=== PATIENT | male | born 1990 | race Caucasian/White ===

== ENCOUNTER 2024-09-26 13:00 | Emergency (ER) | payer BC, SELFPAY ==
[2024-09-26] VITALS (12 sets, daily range): BP systolic 145–186; BP diastolic 104–124; PULSE 65–94; RESP 18; TEMP 36.7; O2SAT 98–100; BMI 24.4
--- NOTE | 2024-09-26 13:08 | ED_ITS ---
<Statement entered by Nara Wilcox MD - 09/28/24 14:46> I was consulted by the RANJANA, and we discussed the complexity of the problems being addressed. I approved the treatment and management plan for this patient's care in the emergency department, thus performing a substantive portion of the medical decision making. Nara Wilcox MD, CORNELL, FACEP Discharge Plan Disposition Patient Disposition: Xfer Short-Term Hosp Referrals Follow up/Referrals: Soheila Alvarado [Primary Care Provider] - See instructions Clinical Impressions Clinical Impression: Carotid artery dissection, Malignant hypertension Stand Alone Forms Stand Alone Forms: Transfer Record - ED Print Language Print Language: Latvian Discharge ED Provider: Nara Wilcox General Adult HPI <MEGAN Chu - Last Filed: 09/26/24 15:45> General Chief complaint: Headache Stated complaint: High Blood Pressure Time Seen by Provider: 09/26/24 13:07 History of Present Illness HPI narrative: Acute abortivePatient presents for evaluation of a headache. Patient has a known history of migraine headaches and is on both disease modifying medication as well as. He has taken both of those without relief. He reports photophobia phonophobia. He has not had any vision changes change in level of consciousness dizziness or focal neurologic signs. He has no nuchal rigidity. He went to an urgent treatment center today and he was noted to be significantly hypertensive. According to the patient and his they gave him a cortisone shot and prescribed him lisinopril hydrochlorothiazide. However patient is no better and presented to the ER for evaluation. On arrival he again reports diffuse headache and it is worse than he has ever had before. It has not responded to any of his outpatient regimens. He denies chest pain shortness of breath fever chills hemoptysis hematochezia melena he has some nausea but no vomiting or diarrhea. Related Data Allergies Allergy/AdvReac Type Severity Reaction Status Date / Time cefaclor (From [facility]) Allergy Hives Verified 09/26/24 13:39 PFSH <MEGAN Chu - Last Filed: 09/26/24 15:45> PFS Disclaimer: The information contained in this section may have been updated after the patient was seen, as this information can be updated by other users. Social History (Updated 09/26/24 @ 15:45 by RANDALL Chu Smoking Status: Never smoker alcohol intake: never current occupational status: employed Travel in the last 8 weeks: None <MEGAN Chu - Last Filed: 09/26/24 15:45> ROS Obtained: Yes Systems reviewed as appropriate & no additional complaints except as documented Physical Exam <MEGAN Chu - Last Filed: 09/26/24 15:45> General General appearance: alert and in no apparent distress Head Head exam: atraumatic and normal inspection Neck Neck exam: Present other (No carotid bruits) Respiratory Respiratory exam: Present normal lung sounds bilaterally Cardiovascular Cardiovascular exam: Present regular rate Neurological Exam Neurological exam: Present alert and oriented X3 Medical Decision Making <MEGAN Chu - Last Filed: 09/26/24 15:45> Medical Records Medical records reviewed: Yes I reviewed the patient's medical records. Screening: Per USPSTF and CDC recommendations, given the prevalence of disease in our region, it is our hospital?s policy to screen for HIV and viral Hepatitis for all patients aged 18 and over and those with ongoing risk factors. [place] Inquiry Pt receiving controlled substance: No Vital Signs: 09/26/24 13:01 09/26/24 13:30 09/26/24 14:00 Temperature 98.0 F Temperature Source Oral Pulse Rate 78 93 H Pulse Rate [Right] 80 Respiratory Rate 18 Blood Pressure 186/124 H 172/123 H Blood Pressure [Left Arm] 186/123 H Blood Pressure Mean 135 136 Blood Pressure Mean [Left Arm] 144 Blood Pressure Source Blood Pressure Source [Left Arm] Automatic Cuff 02 Sat by Pulse Oximetry 98 100 99 Oxygen Delivery Method Room Air Room Air Room Air 09/26/24 14:30 09/26/24 15:00 09/26/24 15:30 Temperature Temperature Source Pulse Rate 65 79 89 Pulse Rate [Right] Respiratory Rate Blood Pressure 162/122 H 168/124 H 158/119 H Blood Pressure [Left Arm] Blood Pressure Mean 130 138 130 Blood Pressure Mean [Left Arm] Blood Pressure Source Blood Pressure Source [Left Arm] 02 Sat by Pulse Oximetry 100 100 100 Oxygen Delivery Method Room Air Room Air Room Air 09/26/24 16:00 09/26/24 16:09 09/26/24 16:10 Temperature Temperature Source Pulse Rate 89 82 88 Pulse Rate [Right] Respiratory Rate Blood Pressure 148/122 H 155/115 H 165/108 H Blood Pressure [Left Arm] Blood Pressure Mean 128 126 119 Blood Pressure Mean [Left Arm] Blood Pressure Source Blood Pressure Source [Left Arm] 02 Sat by Pulse Oximetry 99 99 100 Oxygen Delivery Method 09/26/24 16:18 09/26/24 16:20 09/26/24 16:40 Temperature 98.0 F Temperature Source Oral Pulse Rate 94 H 88 81 Pulse Rate [Right] Respiratory Rate 18 Blood Pressure 149/112 H 160/120 H 145/104 H Blood Pressure [Left Arm] Blood Pressure Mean 121 131 Blood Pressure Mean [Left Arm] Blood Pressure Source Automatic Cuff Blood Pressure Source [Left Arm] 02 Sat by Pulse Oximetry 100 100 Oxygen Delivery Method Room Air Lab Data Lab results reviewed: Yes I reviewed the patient's lab results. Lab Results 09/26/24 13:13: WBC 7.1, RBC 5.71, Hgb 16.9, Hct 48.2, MCV 84.4, MCH 29.5, MCHC 35.0, RDW 13.3, Plt Count 329, MPV 7.0 L, Neut % (Auto) 56.0, Lymph % (Auto) 31.0, Centre % (Auto) 5.9, Eos % (Auto) 5.7, Baso % (Auto) 1.4, Neut # (Auto) 4.0, Lymph # (Auto) 2.2, Centre # (Auto) 0.4, Eos # (Auto) 0.4, Baso # (Auto) 0.1, ESR 2, Sodium 140, Potassium 3.7, Chloride 97 L, Carbon Dioxide 33 H, Anion Gap 13.7, BUN 8 L, Creatinine 1.30 H, Estimated Creat Clear 90, Estimated GFR 63, Est GFR ( Amer) 76, Glucose 102 H, Calcium 10.8 H, Magnesium 2.2, Total Bilirubin 0.7, AST 31, ALT 28, Alkaline Phosphatase 64, Troponin I < 0.01 09/26/24 13:13: Troponin I Cancelled, C-Reactive Protein Cancelled, NT-Pro-B Natriuret Pep 49.5, Total Protein 8.7 H, Albumin 5.0, Globulin 3.7 H, Albumin/Globulin Ratio 1.4, TSH 1.53, Free T4 Index 3.1 L, Thyroxine (T4) 10.4, T3 Uptake 30 11/22/24 13:13 09/26/24 13:13 Orders (Tests/Meds): ED MEDICATIONS Discontinued Medications Generic Name Dose Route Start Last Admin Trade Name Humera PRN Reason Stop Dose Admin Acetaminophen 1,000 mg 09/26/24 13:29 09/26/24 13:50 Acetaminophen 1,000mg/100ml Vial IV 09/26/24 13:30 1,000 mg ONCE ONE Administration Aspirin 81 mg 09/26/24 15:41 09/26/24 15:45 Aspirin 81mg Chewable Tablet PO 09/26/24 15:42 81 mg ONCE ONE Administration Dexamethasone Sodium Phosphate 10 mg 09/26/24 13:29 09/26/24 13:50 Dexamethasone 4mg/Ml 5ml Mdv IV 09/26/24 13:30 10 mg ONCE ONE Administration Diphenhydramine HCl 50 mg 09/26/24 13:29 09/26/24 13:50 Diphenhydramine 50mg/Ml Vial IV 09/26/24 13:30 50 mg ONCE ONE Administration Fentanyl Citrate 80 mcg 09/26/24 16:23 09/26/24 16:25 Fentanyl 100mcg/2ml Vial IV 09/26/24 16:24 80 mcg ONCE ONE Administration Nicardipine HCl 25 mg/ Sodium 250 mls @ 50 mls/hr 09/26/24 15:41 09/26/24 16:36 Chloride IV 10/26/24 15:40 7.5 mg/hr .Q5H LOYDA 75 mls/hr Infusion Protocol 5 MG/HR Iopamidol 80 ml 09/26/24 14:27 09/26/24 14:28 Iopamidol-370 (76%);100ml Bottle IV 09/26/24 14:28 80 ml ONCE ONE Administration Ketorolac Tromethamine 15 mg 09/26/24 13:29 09/26/24 13:50 Ketorolac 30mg/Ml Vial IV 09/26/24 13:30 15 mg ONCE ONE Administration Methocarbamol 500 mg 09/26/24 13:29 09/26/24 13:49 Methocarbamol 500mg Tablet PO 09/26/24 13:30 500 mg ONCE ONE Administration Prochlorperazine Edisylate 10 mg 09/26/24 13:29 09/26/24 13:49 Prochlorperazine 10mg/2ml Vial IV 09/26/24 13:30 10 mg ONCE ONE Administration Sodium Chloride 10 ml 09/26/24 14:27 09/26/24 14:28 Sodium Chloride 0.9% 10ml Syr (Rad Only) IV 09/26/24 14:28 10 ml ONCE ONE Administration ORDERS Category Date Time Status CT angio head Stat Cat Scan 09/26/24 13:[address] angio neck Stat Cat Scan 09/26/24 13:[address] head/brain wo con Stat Cat Scan 09/26/24 13:32 Completed BNP [NT Pro Brain Natriuretic Pep.] Stat Lab 09/26/24 13:13 Completed CBC w/Auto Diff [Complete Blood Count Auto Diff] Stat Lab 09/26/24 13:13 Completed CMP [Comprehensive Metabolic Panel] Stat Lab 09/26/24 13:13 Completed ESR [Erythrocyte Sedimentation Rate] Stat Lab 09/26/24 13:13 Completed Magnesium Stat Lab 09/26/24 13:13 Completed Thyroid Panel Stat Lab 09/26/24 13:13 Completed Trop I [Troponin I] Stat Lab 09/26/24 13:13 Completed Medical Decision Narrative: In summary patient is a 4-year-old male who presents to the emergency department for evaluation of headache and high blood pressure. Patient is shortly has malignant hypertension with a blood pressure of 186/123 but has an O2 sat of 98% on room air pulse of 80 respiratory rate of 18 pulse of 80 upon arrival, afebrile. Zickel exam is remarkable for no nuchal rigidity, photophobia and phonophobia at the time my exam but pupils equal round reactive to light Mega Coma Score is 15 patient is awake alert and oriented to person place and circumstance. Breath sounds are clear and equal bilaterally to the bases. Heart sounds are normal. There is no carotid bruits heard.. Differential diagnosis includes intractable migraine versus intracranial lesion versus cardiovascular abnormality etc. Initial workup will be conducted with hematologic labs CTA of the head and neck CT of the head without contrast. Initial interventions include Tylenol Decadron Benadryl Compazine Robaxin. Initial workup reviewed by me shows his hematologic labs are remarkable for a creatinine of 1.3 and BUN of 8 and GFR of 63 calcium 10.8 and undetected troponin at 0.01 with the remainder of his hematologic labs being nonactionable. My informal interpretation of CT scan of his head does not show any acute processes on the noncontrast exam however there is questionable stenosis of the right internal carotid prior to radiology read. Radiology confirms that this is either carotid dissection or fibromuscular dysplasia. I personally spoke with the radiologist to receive those results. Upon repeat evaluation patient remains hypertensive but his headache is better.. Given this we are going to allow permissive hypertension due to this being the likelihood of a perfusing pressure for the time being until we speak with vascular surgery. I have contacted the [facility] to initiate that consult. Have reached and discussed with the [facility], Dr. Marie of vascular surgery about patient management and patient is been accepted pending a bed assignment at 1545 <Jono Bassett MD - Last Filed: 09/26/24 21:58> Vital Signs: 09/26/24 13:01 09/26/24 13:30 09/26/24 14:00 Temperature 98.0 F Temperature Source Oral Pulse Rate 78 93 H Pulse Rate [Right] 80 Respiratory Rate 18 Blood Pressure 186/124 H 172/123 H Blood Pressure [Left Arm] 186/123 H Blood Pressure Mean 135 136 Blood Pressure Mean [Left Arm] 144 Blood Pressure Source Blood Pressure Source [Left Arm] Automatic Cuff 02 Sat by Pulse Oximetry 98 100 99 Oxygen Delivery Method Room Air Room Air Room Air 09/26/24 14:30 09/26/24 15:00 09/26/24 15:30 Temperature Temperature Source Pulse Rate 65 79 89 Pulse Rate [Right] Respiratory Rate Blood Pressure 162/122 H 168/124 H 158/119 H Blood Pressure [Left Arm] Blood Pressure Mean 130 138 130 Blood Pressure Mean [Left Arm] Blood Pressure Source Blood Pressure Source [Left Arm] 02 Sat by Pulse Oximetry 100 100 100 Oxygen Delivery Method Room Air Room Air Room Air 09/26/24 16:00 09/26/24 16:09 09/26/24 16:10 Temperature Temperature Source Pulse Rate 89 82 88 Pulse Rate [Right] Respiratory Rate Blood Pressure 148/122 H 155/115 H 165/108 H Blood Pressure [Left Arm] Blood Pressure Mean 128 126 119 Blood Pressure Mean [Left Arm] Blood Pressure Source Blood Pressure Source [Left Arm] 02 Sat by Pulse Oximetry 99 99 100 Oxygen Delivery Method 09/26/24 16:18 09/26/24 16:20 09/26/24 16:40 Temperature 98.0 F Temperature Source Oral Pulse Rate 94 H 88 81 Pulse Rate [Right] Respiratory Rate 18 Blood Pressure 149/112 H 160/120 H 145/104 H Blood Pressure [Left Arm] Blood Pressure Mean 121 131 Blood Pressure Mean [Left Arm] Blood Pressure Source Automatic Cuff Blood Pressure Source [Left Arm] 02 Sat by Pulse Oximetry 100 100 Oxygen Delivery Method Room Air Lab Data Lab Results 09/26/24 13:13: WBC 7.1, RBC 5.71, Hgb 16.9, Hct 48.2, MCV 84.4, MCH 29.5, MCHC 35.0, RDW 13.3, Plt Count 329, MPV 7.0 L, Neut % (Auto) 56.0, Lymph % (Auto) 31.0, Centre % (Auto) 5.9, Eos % (Auto) 5.7, Baso % (Auto) 1.4, Neut # (Auto) 4.0, Lymph # (Auto) 2.2, Centre # (Auto) 0.4, Eos # (Auto) 0.4, Baso # (Auto) 0.1, ESR 2, Sodium 140, Potassium 3.7, Chloride 97 L, Carbon Dioxide 33 H, Anion Gap 13.7, BUN 8 L, Creatinine 1.30 H, Estimated Creat Clear 90, Estimated GFR 63, Est GFR ( Amer) 76, Glucose 102 H, Calcium 10.8 H, Magnesium 2.2, Total Bilirubin 0.7, AST 31, ALT 28, Alkaline Phosphatase 64, Troponin I < 0.01 09/26/24 13:13: Troponin I Cancelled, C-Reactive Protein Cancelled, NT-Pro-B Natriuret Pep 49.5, Total Protein 8.7 H, Albumin 5.0, Globulin 3.7 H, Albumin/Globulin Ratio 1.4, TSH 1.53, Free T4 Index 3.1 L, Thyroxine (T4) 10.4, T3 Uptake 30 Orders (Tests/Meds): ED MEDICATIONS Discontinued Medications Generic Name Dose Route Start Last Admin Trade Name Freq PRN Reason Stop Dose Admin Acetaminophen 1,000 mg 09/26/24 13:29 09/26/24 13:50 Acetaminophen 1,000mg/100ml Vial IV 09/26/24 13:30 1,000 mg ONCE ONE Administration Aspirin 81 mg 09/26/24 15:41 09/26/24 15:45 Aspirin 81mg Chewable Tablet PO 09/26/24 15:42 81 mg ONCE ONE Administration Dexamethasone Sodium Phosphate 10 mg 09/26/24 13:29 09/26/24 13:50 Dexamethasone 4mg/Ml 5ml Mdv IV 09/26/24 13:30 10 mg ONCE ONE Administration Diphenhydramine HCl 50 mg 09/26/24 13:29 09/26/24 13:50 Diphenhydramine 50mg/Ml Vial IV 09/26/24 13:30 50 mg ONCE ONE Administration Fentanyl Citrate 80 mcg 09/26/24 16:23 09/26/24 16:25 Fentanyl 100mcg/2ml Vial IV 09/26/24 16:24 80 mcg ONCE ONE Administration Nicardipine HCl 25 mg/ Sodium 250 mls @ 50 mls/hr 09/26/24 15:41 09/26/24 16:36 Chloride IV 10/26/24 15:40 7.5 mg/hr .Q5H LOYDA 75 mls/hr Infusion Protocol 5 MG/HR Iopamidol 80 ml 09/26/24 14:27 09/26/24 14:28 Iopamidol-370 (76%);100ml Bottle IV 09/26/24 14:28 80 ml ONCE ONE Administration Ketorolac Tromethamine 15 mg 09/26/24 13:29 09/26/24 13:50 Ketorolac 30mg/Ml Vial IV 09/26/24 13:30 15 mg ONCE ONE Administration Methocarbamol 500 mg 09/26/24 13:29 09/26/24 13:49 Methocarbamol 500mg Tablet PO 09/26/24 13:30 500 mg ONCE ONE Administration Prochlorperazine Edisylate 10 mg 09/26/24 13:29 09/26/24 13:49 Prochlorperazine 10mg/2ml Vial IV 09/26/24 13:30 10 mg ONCE ONE Administration Sodium Chloride 10 ml 09/26/24 14:27 09/26/24 14:28 Sodium Chloride 0.9% 10ml Syr (Rad Only) IV 09/26/24 14:28 10 ml ONCE ONE Administration ORDERS Category Date Time Status CT angio head Stat Cat Scan 09/26/24 13:[address] angio neck Stat Cat Scan 09/26/24 13:[address] head/brain wo con Stat Cat Scan 09/26/24 13:32 Completed BNP [NT Pro Brain Natriuretic Pep.] Stat Lab 09/26/24 13:13 Completed CBC w/Auto Diff [Complete Blood Count Auto Diff] Stat Lab 09/26/24 13:13 Completed CMP [Comprehensive Metabolic Panel] Stat Lab 09/26/24 13:13 Completed ESR [Erythrocyte Sedimentation Rate] Stat Lab 09/26/24 13:13 Completed Magnesium Stat Lab 09/26/24 13:13 Completed Thyroid Panel Stat Lab 09/26/24 13:13 Completed Trop I [Troponin I] Stat Lab 09/26/24 13:13 Completed Medical Decision Narrative: In summary patient is a 4-year-old male who presents to the emergency department for evaluation of headache and high blood pressure. Patient is shortly has malignant hypertension with a blood pressure of 186/123 but has an O2 sat of 98% on room air pulse of 80 respiratory rate of 18 pulse of 80 upon arrival, afebrile. Zickel exam is remarkable for no nuchal rigidity, photophobia and phonophobia at the time my exam but pupils equal round reactive to light Mega Coma Score is 15 patient is awake alert and oriented to person place and circumstance. Breath sounds are clear and equal bilaterally to the bases. Heart sounds are normal. There is no carotid bruits heard.. Differential diagnosis includes intractable migraine versus intracranial lesion versus cardiovascular abnormality etc. Initial workup will be conducted with hematologic labs CTA of the head and neck CT of the head without contrast. Initial interventions include Tylenol Decadron Benadryl Compazine Robaxin. Initial workup reviewed by me shows his hematologic labs are remarkable for a creatinine of 1.3 and BUN of 8 and GFR of 63 calcium 10.8 and undetected troponin at 0.01 with the remainder of his hematologic labs being nonactionable. My informal interpretation of CT scan of his head does not show any acute processes on the noncontrast exam however there is questionable stenosis of the right internal carotid prior to radiology read. Radiology confirms that this is either carotid dissection or fibromuscular dysplasia. I personally spoke with the radiologist to receive those results. Upon repeat evaluation patient remains hypertensive but his headache is better.. Given this we are going to allow permissive hypertension due to this being the likelihood of a perfusing pressure for the time being until we speak with vascular surgery. I have contacted the [facility] to initiate that consult. Have reached and discussed with the [facility], Dr. Marie of vascular surgery about patient management and patient is been accepted pending a bed assignment at 1545. I was consulted by the RANJANA, and we discussed the complexity of the problems being addressed. I approved the treatment and management plan for this patient's care in the emergency department, thus performing a substantive portion of the medical decision making. Patient has carotid artery dissection and he is undergoing antihypertensive therapy with Cardene at the direction of vascular surgery from [facility]. They recommend aspirin which was administered in our emergency department immediately after their recommendations. Patient was transferred in stable condition. Jono Bassett MD Critical Care <MEGAN Chu - Last Filed: 09/26/24 15:45> Critical Care Time Critical Care Time: No
--- NOTE | 2024-09-26 13:12 | ECG_ITS ---
APPROVED REPORT Exam: Resting ECG HR:73 bpm ECG Measurements Heart Rate 73 AXES ME 133 P 41 QRSd 102 QRS 48 QT 366 T -11 QTc 393 Conclusion SINUS RHYTHM NONSPECIFIC ST & T-WAVE ABNORMALITY BORDERLINE ECG Electronically signed by : RAFAT CHACKO, 09/26/2024 23:34:42
--- NOTE | 2024-09-26 13:29 | CT_ITS ---
PROCEDURE INFORMATION: Exam: CTA Neck With Contrast Exam date and time: 09/26/2024 2:15 PM Age: 34 years old Clinical indication: Headache; Additional info: Headache, hypertension TECHNIQUE: Imaging protocol: Computed tomographic angiography of the neck with contrast. Exam focused on the cervical segments of the vasculature. 3D rendering (Not supervised by radiologist): MIP and/or 3D reconstructed images were created by the technologist. Radiation optimization: All CT scans at this facility use at least one of these dose optimization techniques: automated exposure control; mA and/or kV adjustment per patient size (includes targeted exams where dose is matched to clinical indication); or iterative reconstruction. Contrast material: [id number]; Contrast volume: 80 ml; Contrast route: INTRAVENOUS (IV); COMPARISON: CT ANGIO HEAD 09/26/2024 2:15 PM FINDINGS: Right common carotid artery: No stenosis. No dissection or occlusion. Right internal carotid artery: Right internal carotid artery is diffusely narrowed and irregular. There are segments of near-complete occlusion. Right external carotid artery: No occlusion or stenosis of the origin. Left common carotid artery: No stenosis. No dissection or occlusion. Left internal carotid artery: No stenosis of the extracranial segment. No dissection or occlusion. Left external carotid artery: No occlusion or stenosis of the origin. Right vertebral artery: No stenosis. No dissection or occlusion. Left vertebral artery: No stenosis. No dissection or occlusion. Soft tissues: Normal. No significant soft tissue swelling. Bones/joints: No acute fracture. IMPRESSION: Findings suspicious for right internal carotid artery dissection. Fibromuscular dysplasia could have a similar appearance. REFERENCES: NASCET CRITERIA. The degree of stenosis in the cervical segment of the internal carotid artery is based on NASCET criteria. Normal is no stenosis. Mild is less than 50% stenosis. Moderate is 50-69% stenosis. Severe is 70% to 99% stenosis. Total occlusion is no detectable patent lumen.
--- NOTE | 2024-09-26 13:29 | CT_ITS ---
PROCEDURE INFORMATION: Exam: CTA Head With Contrast, Arteriography Exam date and time: 09/26/2024 2:15 PM Age: 34 years old Clinical indication: Headache; Additional info: Headache, hypertension TECHNIQUE: Imaging protocol: Computed tomographic angiography of the head with contrast. Exam focused on the arteries. 3D rendering (Not supervised by radiologist): MIP and/or 3D reconstructed images were created by the technologist. Radiation optimization: All CT scans at this facility use at least one of these dose optimization techniques: automated exposure control; mA and/or kV adjustment per patient size (includes targeted exams where dose is matched to clinical indication); or iterative reconstruction. Contrast material: [id number]; Contrast volume: 80 ml; Contrast route: INTRAVENOUS (IV); COMPARISON: CT ANGIO HEAD 09/26/2024 2:15 PM FINDINGS: ANTERIOR CIRCULATION: Right internal carotid artery: Intracranial segment is patent with no significant stenosis. No aneurysm. Right middle cerebral artery: No occlusion or significant stenosis. No aneurysm. Right anterior cerebral artery: No occlusion or significant stenosis. No aneurysm. Left internal carotid artery: Intracranial segment is patent with no significant stenosis. No aneurysm. Left middle cerebral artery: No occlusion or significant stenosis. No aneurysm. Left anterior cerebral artery: No occlusion or significant stenosis. No aneurysm. POSTERIOR CIRCULATION: Right vertebral artery: No occlusion or significant stenosis. No aneurysm. Left vertebral artery: No occlusion or significant stenosis. No aneurysm. Basilar artery: No occlusion or significant stenosis. No aneurysm. Right posterior cerebral artery: No occlusion or significant stenosis. No aneurysm. Left posterior cerebral artery: No occlusion or significant stenosis. No aneurysm. Brain: No definite mass, mass effect, or midline shift. Cerebral ventricles: No ventriculomegaly. Bones/joints: Unremarkable. No acute fracture. Soft tissues: Unremarkable. IMPRESSION: No large vessel stenosis or occlusion.
--- NOTE | 2024-09-26 13:30 | PC.NURSE ---
Asked Luiz Wooten PA-C if he would like to treat the elevated BP. No new orders.
--- NOTE | 2024-09-26 13:32 | CT_ITS ---
PROCEDURE INFORMATION: Exam: CT Head Without Contrast Exam date and time: 09/26/2024 2:12 PM Age: 34 years old Clinical indication: Other: Headache; Additional info: Headache, hypertension TECHNIQUE: Imaging protocol: Computed tomography of the head without contrast. Radiation optimization: All CT scans at this facility use at least one of these dose optimization techniques: automated exposure control; mA and/or kV adjustment per patient size (includes targeted exams where dose is matched to clinical indication); or iterative reconstruction. COMPARISON: CT HEAD/BRAIN WO CON 09/26/2024 2:12 PM FINDINGS: Brain: No evidence of acute parenchymal hemorrhage, extra-axial collection or local regional mass effect. Cerebral ventricles: There is asymmetric prominence of the right temporal horn favored developmental versus sequela of prior injury. The ventricles, sulci and cisterns are otherwise normal in size and configuration. No hydrocephalus or midline structure shift Pituitary gland and sella: Sellar/parasellar structures, orbits and craniocervical junction are unremarkable Paranasal sinuses: Visualized sinuses are unremarkable. No fluid levels. Mastoid air cells: Visualized mastoid air cells are well aerated. Bones: No calvarial fracture Soft tissues: Unremarkable. IMPRESSION: Asymmetric prominence of the right temporal horn favored developmental versus sequela of prior injury. Otherwise no acute intracranial abnormality
[2024-09-26 13:45] LABS: Chloride 97 mmol/L (98-107); Potassium 3.7 mmoL/L (3.5-5.1); Sodium 140 mmol/L (136-145)
[2024-09-26 13:47] LABS: Blood Urea Nitrogen 8 mg/dl (9-20); Creatinine Clearance Estimated 90 mL/min (50-200); Estimated Glomerular Filt Rate 63 ml/min (>60); GFR (African American) 76 ML/MIN (>60)
[2024-09-26 13:48] LABS: Alanine Aminotransferase 28 U/L (12-78); Albumin/Globulin Ratio 1.4 (1.1-1.8); Alkaline Phosphatase 64 U/L (38-126); Anion Gap 13.7 mEq/L (5-15); Aspartate Amino Transferase 31 U/L (17-59); Bilirubin,Total 0.7 mg/dl (0.2-1.3); Calcium 10.8 mg/dl (8.4-10.2); Carbon Dioxide 33 mmol/L (22.0-30.0); Globulin 3.7 g/dL (1.3-3.2); Glucose 102 mg/dl (74-100); Magnesium 2.2 mg/dl (1.6-2.3); Total Protein,Serum 8.7 g/dl (6.3-8.2)
[2024-09-26] MEDS: METHOCARBAMOL 500MG TABLET 500 MG PO (13:49)
[2024-09-26] MEDS: PROCHLORPERAZINE 10MG/2ML VIAL 10 MG IV (13:49)
[2024-09-26] MEDS: ACETAMINOPHEN 1,000MG/100ML VIAL 1000 MG IV (13:50)
[2024-09-26] MEDS: DEXAMETHASONE 4MG/ML 5ML MDV 10 MG IV (13:50)
[2024-09-26] MEDS: KETOROLAC 30MG/ML VIAL 15 MG IV (13:50)
[2024-09-26] MEDS: diphenhydrAMINE 50MG/ML VIAL 50 MG IV (13:50)
[2024-09-26 13:58] LABS: NT Pro Brain Natriuretic Pep. 49.5 pg/mL (0-125)
[2024-09-26 14:00] LABS: Basophils # 0.1 K/mm3 (0-0.2); Basophils % 1.4 % (0.1-2.0); Eosinophils # 0.4 K/mm3 (0.0-0.4); Eosinophils % 5.7 % (0.1-12.0); Hematocrit 48.2 % (42.0-52.0); Hemoglobin 16.9 g/dL (14.1-18.0); Lymphocytes # 2.2 K/mm3 (0.7-4.5); Mean Corpuscular Hemoglobin 29.5 pg (27.0-31.2); Mean Corpuscular Volume 84.4 fl (80-94); Monocytes # 0.4 K/mm3 (0.1-1.0); Monocytes % 5.9 % (1.7-9.3); Platelet Count 329 K/mm3 (142-424); Red Blood Count 5.71 M/mm3 (4.60-6.20); Red Cell Distribution Width 13.3 % (11.5-17.5); Troponin I < 0.01 ng/ml (0.00-0.034); White Blood Count 7.1 K/mm3 (4.8-10.8)
[2024-09-26 14:06] LABS: Triiodothryronine (T3) Uptake 30 % (23.5-40.5)
[2024-09-26 14:07] LABS: Free Thyroxine Index 3.1 ug/dL (5.93-13.13); T4 (Thyroxine) 10.4 ug/dl (5.53-11.0)
--- NOTE | 2024-09-26 14:15 | PC.NURSE ---
After medications, pt's headache is slightly better but mostly feels a little tired . Checked with provider if he would like any antihypertensives, no new orders
[2024-09-26 14:20] LABS: Thyroid Stimulating Hormone 1.53 uIU/mL (0.465-4.68)
[2024-09-26] MEDS: SODIUM CHLORIDE 0.9% 10ML SYR (RAD ONLY) 10 ML IV (14:28)
[2024-09-26] MEDS: IOPAMIDOL-370 (76%);100ML BOTTLE 80 ML IV (14:28)
--- NOTE | 2024-09-26 14:55 | PC.NURSE ---
Calling [facility]
--- NOTE | 2024-09-26 15:32 | PC.NURSE ---
Luiz Denise speaking with [facility]
--- NOTE | 2024-09-26 15:40 | PC.NURSE ---
Dr. Bassett at bedside
[2024-09-26] MEDS: ASPIRIN 81MG CHEWABLE TABLET 81 MG PO (15:45)
[2024-09-26] MEDS: NICARDIPINE HCL 25 MG in 0.9 % SODIUM CHLORIDE 240 ML 50 MG IV (15:59)
[2024-09-26 16:03] LABS: Erythrocyte Sedimentation Rate 2 mm/hr (0-15)
[2024-09-26] MEDS: FENTANYL 100MCG/2ML VIAL 80 MCG IV (16:25)
== END 2024-09-26 16:55 | disposition short-term general hospital (02) ==
PROVIDERS: Physician Assistant; Emergency Provider Student in an Organized Health Care Education/Training Program; PCP Family Medicine
DX: I77.71 Dissection of carotid artery (principal); I10 Essential (primary) hypertension; R51.9 Headache, unspecified; H53.149 Visual discomfort, unspecified; F40.298 Other specified phobia
CPT/HCPCS: 70450; 70496; 70498; 80050; 80053; 83735; 83880; 84436; 84443; 84479; 84484; 85025; 85651; 93005; 96374; 96375; 99285; J0131; J0780; J1100; J1200; J1885; J2404; J3010; Q9967